=== PATIENT | male | born 1960 | race Caucasian/White ===

== ENCOUNTER 2021-07-26 12:54 | Emergency (ER) | payer MEDICAID ==
[~2021-07-26] VITALS: Ht 170.2 cm; Wt 65.9 kg
[~2021-07-26 12:54] MED LIST: NO HOME MEDS
[2021-07-26 13:14] VITALS: BP 137/88
[2021-07-26] MEDS ORDERED: ketorolac tromethamine 15mg/ml inj. IM ONE (15:05)
[2021-07-26] MEDS ORDERED: acetaminophen 325mg tablet PO ONE (15:05)
[2021-07-26] MEDS ORDERED: ACET-812 PO (15:09)
[2021-07-26] MEDS ORDERED: IBUP-1984 PO (15:09)
[2021-07-26] MEDS ORDERED: ketorolac trometh. 30mg/ml inj. IM ONE (15:10)
== END 2021-07-26 15:50 | disposition home or self-care (01) ==
LOC: ER 12:55
DX: M25.551 Pain in right hip (principal); F17.200 Nicotine dependence, unspecified, uncomplicated; F12.90 Cannabis use, unspecified, uncomplicated; J43.9 Emphysema, unspecified; G89.29 Other chronic pain; Z72.89 Other problems related to lifestyle; Z79.899 Other long term (current) drug therapy; W00.0XXA Fall on same level due to ice and snow, initial encounter; Y93.89 Activity, other specified; Y92.89 Other specified places as the place of occurrence of the external cause; Y99.8 Other external cause status
CPT/HCPCS: 73502; 96372; 99283; J1885

== ENCOUNTER 2023-10-28 00:40 | Emergency (ER) | payer MEDICAID ==
[~2023-10-28] VITALS: Ht 165.1 cm; Wt 65.9 kg
[~2023-10-28 00:40] MED LIST changes: +ACET-812 PO
[2023-10-28 00:44] VITALS: BP 142/89; PULSE 77; RESP 18; TEMP 98.8; O2SAT 97
[2023-10-28] MEDS ORDERED: AMOX-117 PO (00:56)
[2023-10-28] MEDS ORDERED: IBUP-1984 PO (00:56)
[2023-10-28] MEDS: ibuprofen tablet 400 MG TABLET PO ONE (01:01)
== END 2023-10-28 01:06 | disposition home or self-care (01) ==
LOC: ER 00:42
DX: K08.89 Other specified disorders of teeth and supporting structures (principal); J43.9 Emphysema, unspecified; G89.29 Other chronic pain; F12.90 Cannabis use, unspecified, uncomplicated; Z72.89 Other problems related to lifestyle; Z79.2 Long term (current) use of antibiotics; Z79.899 Other long term (current) drug therapy
CPT/HCPCS: 99283